=== PATIENT | female | born 1980 ===

== ENCOUNTER 2020-11-19 09:36 | Outpatient (CLI) | payer OTHER | END 2020-11-19 09:40 | disposition home or self-care (01) | LOC: MAMO-SONO 09:36 | PROVIDERS: ATTEND Specialist | DX: N84.0 Polyp of corpus uteri (principal) ==

== ENCOUNTER 2021-01-30 07:48 | Day surgery (SDC) | payer OTHER | END 2021-01-30 17:35 | disposition home or self-care (01) | LOC: CIR.AMB 07:48 | PROVIDERS: ATTEND Specialist | DX: N84.0 Polyp of corpus uteri (principal); Z20.822 Contact with and (suspected) exposure to COVID-19 ==

== ENCOUNTER 2023-05-06 07:10 | Day surgery (SDC) | payer OTHER ==
[2023-05-06] MEDS ORDERED: CLINDAMYCIN PHOSPHATE 150 MG/ML (900mg) ONE ×2 (14:24→14:42)
[2023-05-06] MEDS ORDERED: BUPIVACAINE HCL/PF 0.5% 30ML ML ONE (15:43)
[2023-05-06] MEDS ORDERED: GENTAMICIN SULFATE 40 MG/ML VIAL ONE (15:43)
[2023-05-06] MEDS ORDERED: CEFAZOLIN SODIUM 1,000 MG VIAL ONE (15:43)
[2023-05-06] MEDS ORDERED: POVIDONE-IODINE SCRUB 118 ML BOTT TOP ONE ×2 (15:44→22:00)
[2023-05-06] MEDS ORDERED: POVIDONE-IODINE 118 ML BOTT TOP ONE ×3 (15:44→22:00)
[2023-05-06] MEDS ORDERED: CLINDAMYCIN PHOSPHATE 150 MG/ML (900mg) IV ONE (22:00)
[2023-05-06] MEDS ORDERED: BUPIVACAINE HCL 30 ML VIAL IJ ONE (22:15)
[2023-05-06] MEDS ORDERED: GENTAMICIN SULFATE 40 MG/ML VIAL IR ONE (22:15)
[2023-05-06] MEDS ORDERED: CEFAZOLIN SODIUM 1,000 MG VIAL IV ONE (22:15)
== END 2023-05-06 22:30 | disposition home or self-care (01) ==
LOC: CIR.AMB 07:10
PROVIDERS: ATTEND Surgery
DX: D05.11 Intraductal carcinoma in situ of right breast (principal); R59.0 Localized enlarged lymph nodes; Z90.13 Acquired absence of bilateral breasts and nipples